=== PATIENT | female | born 1970 | race Caucasian/White ===

== ENCOUNTER → 2018-12-29 | Outpatient (CLI) | payer OTHER ==
[2018-12-29 12:52] LABS: Basophils # (auto) 0 uL; Basophils % (auto) 0.7 % (0.0-2.0); Eosinophils # (auto) 0.1 uL; Eosinophils % (auto) 2.6 % (0.0-7.0); Hematocrit 44.2 % (36.0-46.0); Hemoglobin 15.2 g/dL (12.2-16.2); Lymphocytes # (auto) 1.5 uL; Lymphocytes % (auto) 25.6 % (10.0-50.0); Mean Corpuscular Hemoglobin 30.6 pg (28.0-32.0); Mean Corpuscular Hgb Conc. 34.3 g/dL (32.0-36.0); Monocytes # (auto) 0.6 uL; Monocytes % (auto) 9.7 % (0.0-12.0); Neutrophils # (auto) 3.6 uL; Neutrophils % (auto) 61.4 % (37.0-80.0); Platelet Count (auto) 249 10^3/uL (140-450); Red Blood Cells 4.96 10^6/uL (4.0-5.20); White Blood Cell 5.8 10^3/uL (4.4-10.8)
[2018-12-29 13:50] LABS: Albumin 3.9 g/dL (3.4-5.0); Calcium 9.4 mg/dL (8.5-10.1)
[2018-12-29 13:56] LABS: BUN/Creatinine Ratio 16.3; Bilirubin, Total 0.4 mg/dL (0.2-1.0)
== END | disposition home or self-care (01) ==
LOC: LAB 12:26
PROVIDERS: ATTEND Internal Medicine
DX: Z12.11 Encounter for screening for malignant neoplasm of colon (principal); R07.89 Other chest pain; R10.32 Left lower quadrant pain; R73.01 Impaired fasting glucose
CPT/HCPCS: 36415; 80053; 80061; 82306; 83036; 84439; 84443; 85025

== ENCOUNTER → 2019-01-26 | Outpatient (CLI) | payer OTHER | END | disposition home or self-care (01) | LOC: Rad HDHVI 07:56 | PROVIDERS: ATTEND Internal Medicine | DX: R00.2 Palpitations (principal); R07.9 Chest pain, unspecified; Z86.79 Personal history of other diseases of the circulatory system | CPT/HCPCS: 93306 ==

== ENCOUNTER → 2019-01-30 | Outpatient (CLI) | payer OTHER ==
[~2019-01-30] VITALS: Ht 170.2 cm; Wt 77.1 kg
== END | disposition home or self-care (01) ==
LOC: Rad HDHVI 10:11
PROVIDERS: ATTEND Internal Medicine
DX: R00.2 Palpitations (principal); R07.89 Other chest pain; F43.9 Reaction to severe stress, unspecified; F41.9 Anxiety disorder, unspecified; F32.9 Major depressive disorder, single episode, unspecified; I25.10 Atherosclerotic heart disease of native coronary artery without angina pectoris; Z86.79 Personal history of other diseases of the circulatory system; Z88.0 Allergy status to penicillin
CPT/HCPCS: 78452; 93017; 96374; A9500

== ENCOUNTER 2024-01-03 10:47 | Emergency (ER) | payer BC ==
[~2024-01-03] VITALS: Ht 170.2 cm; Wt 90.0 kg
[2024-01-03] MEDS: FAMOTIDINE 20 MG TAB PO ONE (12:16)
[2024-01-03] MEDS: KETOROLAC TROMETH 60MG/2ML VIAL IM ONE (12:16)
[2024-01-03] MEDS: ONDANSETRON ODT 4 MG TAB PO ONE (12:16)
[2024-01-03 12:17] VITALS: PULSE 88; RESP 14; O2SAT 97
[2024-01-03 12:21] LABS: Basophils # (auto) 0.1 10 ^3/uL (0-0.2); Basophils % (auto) 0.6 % (0.0-2.0); Eosinophils # (auto) 0.1 10 ^3/uL (0-0.8); Eosinophils % (auto) 0.8 % (0.0-7.0); Hematocrit 41.1 % (36.0-46.0); Lymphocytes # (auto) 1.2 10 ^3/uL (0.4-5.4); Lymphocytes % (auto) 13.2 % (10.0-50.0); Mean Corpuscular Hemoglobin 29.8 pg (28.0-32.0); Mean Corpuscular Volume 87.4 fL (80.0-100.0); Monocytes # (auto) 0.8 10 ^3/uL (0-1.3); Monocytes % (auto) 8.4 % (0.0-12.0); Neutrophils # (auto) 6.8 10 ^3/uL (1.6-8.6); Platelet Count (auto) 263 10^3/uL (140-450); White Blood Cell 8.9 10^3/uL (4.4-10.8)
[2024-01-03 12:48] LABS: Alanine Aminotransferase 27 U/L (7-40); Albumin 4.8 g/dL (3.2-4.8); Alkaline Phosphatase 156 U/L (46-116); Anion Gap 6 (5-15); Aspartate Aminotransferase 19 U/L (13-40); BUN/Creatinine Ratio 18.1 (10.0-20.0); Bilirubin, Total 0.4 mg/dL (0.2-1.0); Blood Urea Nitrogen 19 mg/dL (9-23); Calcium 10.1 mg/dL (8.7-10.4); Carbon Dioxide 28 mmol/L (20-31); Chloride 107 mmol/L (98-107); Glucose 114 mg/dL (74-106); Potassium 4.2 mmol/L (3.5-5.1); Sodium 141 mmol/L (136-145); Total Protein 7.3 g/dL (5.7-8.2)
[2024-01-03 13:57] LABS: Urine Bacteria FEW /hpf (None Seen); Urine Blood Negative /uL (Negative); Urine Clarity Clear (Clear); Urine Protein, UAD Negative (Negative); Urine Specific Gravity 1.005 (1.001-1.035); Urine Urobilinogen Normal (Negative); Urine WBC 3 /hpf (0 - 5)
[2024-01-03 14:00] LABS: Urine Color Light-Yellow (Yellow)
[2024-01-03 16:52] VITALS: BP 126/84; PULSE 77; RESP 18; TEMP 97.9; O2SAT 100
[2024-01-03] MEDS ORDERED: CIPR-173 PO (18:14)
[2024-01-03] MEDS ORDERED: METR-344 PO (18:14)
[2024-01-03] MEDS ORDERED: ZOFR4T PO (18:14)
[2024-01-03] MEDS ORDERED: ACET-1304 PO (18:14)
[2024-01-03] MEDS: levoFLOXacin 500MG 100 ML IV ONE (18:36)
[2024-01-03] MEDS: metroNIDAZOLE 500MG/100ML 100 ML IV ONE (18:36)
== END 2024-01-03 18:39 | disposition home or self-care (01) ==
LOC: ER 10:47
DX: K57.32 Diverticulitis of large intestine without perforation or abscess without bleeding (principal); K21.9 Gastro-esophageal reflux disease without esophagitis; Z79.899 Other long term (current) drug therapy; Z88.0 Allergy status to penicillin
CPT/HCPCS: 36415; 74176; 80053; 81001; 84484; 84702; 85025; J1885; J1956; Q0162

== ENCOUNTER → 2024-01-23 | Outpatient (CLI) | payer BC ==
[~2024-01-23] MED LIST: ACET-1304 PO; CIPR-173 PO; METR-344 PO; ZOFR4T PO
[2024-01-23 06:56] LABS: Basophils # (auto) 0 10 ^3/uL (0-0.2); Basophils % (auto) 0.5 % (0.0-2.0); Eosinophils # (auto) 0.1 10 ^3/uL (0-0.8); Hematocrit 43.6 % (36.0-46.0); Hemoglobin 14.4 g/dL (12.2-16.2); Lymphocytes # (auto) 0.9 10 ^3/uL (0.4-5.4); Lymphocytes % (auto) 18.1 % (10.0-50.0); Mean Corpuscular Hemoglobin 28.8 pg (28.0-32.0); Mean Corpuscular Hgb Conc. 32.9 g/dL (32.0-36.0); Mean Corpuscular Volume 87.6 fL (80.0-100.0); Monocytes # (auto) 0.5 10 ^3/uL (0-1.3); Monocytes % (auto) 10.1 % (0.0-12.0); Neutrophils # (auto) 3.5 10 ^3/uL (1.6-8.6); Neutrophils % (auto) 69.3 % (37.0-80.0); Platelet Count (auto) 235 10^3/uL (140-450); Red Blood Cells 4.98 10^6/uL (4.0-5.20); Red Cell Distribution Width 14.2 % (11.8-14.3); White Blood Cell 5.1 10^3/uL (4.4-10.8)
[2024-01-23 07:25] LABS: Cholesterol 212 mg/dL (< 200)
[2024-01-23 07:26] LABS: LDL Cholesterol 142 mg/dL (< 100)
[2024-01-23 07:27] LABS: Triglycerides 80 mg/dL (< 150)
[2024-01-23 07:29] LABS: HDL Cholesterol 56 mg/dL (40-59)
[2024-01-23 17:14] LABS: Urine Bacteria FEW /hpf (None Seen); Urine Blood Negative /uL (Negative); Urine Clarity Turbid (Clear); Urine Color Light-Yellow (Yellow); Urine Mucus FEW (None Seen); Urine Protein, UAD Negative (Negative); Urine Specific Gravity 1.011 (1.001-1.035); Urine Urobilinogen Normal (Negative); Urine WBC 115 /hpf (0 - 5)
== END | disposition home or self-care (01) ==
LOC: LAB 06:24
DX: Z00.00 Encounter for general adult medical examination without abnormal findings (principal); R73.03 Prediabetes; E55.9 Vitamin D deficiency, unspecified; R00.0 Tachycardia, unspecified
CPT/HCPCS: 36415; 80061; 81001; 82306; 83036; 84443; 85025

== ENCOUNTER → 2024-02-07 | Outpatient (CLI) | payer BC ==
[2024-02-07 16:26] LABS: CRP High Sensitivity 1.51 mg/dL (<1.0)
[2024-02-07 16:39] LABS: Erythrocyte Sedimentation Rate 22 mm/hr (0-20)
[2024-02-10 10:56] LABS: Hepatitis B Core Total AB Negative (Negative)
[2024-02-10 11:53] LABS: Hepatitis A Total Antibody Negative (Negative); Hepatitis B Surface Antibody Negative (Negative); Hepatitis B Surface Antigen Negative (Negative); Hepatitis C Antibody Negative (Negative)
== END | disposition home or self-care (01) ==
LOC: LAB 15:17
PROVIDERS: ATTEND Student in an Organized Health Care Education/Training Program
DX: Z12.11 Encounter for screening for malignant neoplasm of colon (principal)
CPT/HCPCS: 36415; 82150; 82274; 83615; 83690; 85652; 86141; 86703; 86704; 86706; 86708; 86803; 87340

== ENCOUNTER → 2024-02-24 | Outpatient (CLI) | payer BC ==
[2024-02-24 16:33] LABS: Calcium 10.4 mg/dL (8.7-10.4); Carbon Dioxide 28 mmol/L (20-31); Chloride 104 mmol/L (98-107)
[2024-02-24 16:34] LABS: Albumin 4.7 g/dL (3.2-4.8); Anion Gap 8 (5-15); Aspartate Aminotransferase 27 U/L (13-40); BUN/Creatinine Ratio 15.7 (10.0-20.0); Bilirubin, Total 0.3 mg/dL (0.2-1.0); Blood Urea Nitrogen 16 mg/dL (9-23); Glucose 88 mg/dL (74-106); Potassium 4.1 mmol/L (3.5-5.1); Sodium 140 mmol/L (136-145); Total Protein 7.2 g/dL (5.7-8.2)
[2024-02-24 16:36] LABS: Alanine Aminotransferase 46 U/L (7-40); Alkaline Phosphatase 151 U/L (46-116)
== END | disposition home or self-care (01) ==
LOC: LAB 15:27
DX: R63.4 Abnormal weight loss (principal)
CPT/HCPCS: 36415; 80053

== ENCOUNTER 2024-04-04 09:27 | Day surgery (SDC) | payer BC ==
[2024-03-27 16:01] LABS: Basophils # (auto) 0.1 10 ^3/uL (0-0.2); Basophils % (auto) 0.9 % (0.0-2.0); Eosinophils # (auto) 0.2 10 ^3/uL (0-0.8); Eosinophils % (auto) 2.1 % (0.0-7.0); Hematocrit 41.9 % (36.0-46.0); Hemoglobin 14.2 g/dL (12.2-16.2); Lymphocytes # (auto) 1.5 10 ^3/uL (0.4-5.4); Lymphocytes % (auto) 20.3 % (10.0-50.0); Mean Corpuscular Hemoglobin 29.7 pg (28.0-32.0); Mean Corpuscular Hgb Conc. 33.9 g/dL (32.0-36.0); Mean Corpuscular Volume 87.7 fL (80.0-100.0); Monocytes # (auto) 0.8 10 ^3/uL (0-1.3); Monocytes % (auto) 10.5 % (0.0-12.0); Neutrophils # (auto) 4.9 10 ^3/uL (1.6-8.6); Neutrophils % (auto) 66.2 % (37.0-80.0); Nucleated Red Blood Cells % 0.1 %; Platelet Count (auto) 244 10^3/uL (140-450); Red Blood Cells 4.78 10^6/uL (4.0-5.20); Red Cell Distribution Width 14.1 % (11.8-14.3); White Blood Cell 7.5 10^3/uL (4.4-10.8)
[2024-03-27 16:23] LABS: Alanine Aminotransferase 21 U/L (7-40); Albumin 4.7 g/dL (3.2-4.8); Alkaline Phosphatase 139 U/L (46-116); Anion Gap 6 (5-15); Aspartate Aminotransferase 15 U/L (13-40); BUN/Creatinine Ratio 16.4 (10.0-20.0); Bilirubin, Total 0.3 mg/dL (0.2-1.0); Blood Urea Nitrogen 18 mg/dL (9-23); Calcium 10.3 mg/dL (8.7-10.4); Carbon Dioxide 27 mmol/L (20-31); Chloride 107 mmol/L (98-107); Glucose 89 mg/dL (74-106); Potassium 4.3 mmol/L (3.5-5.1); Sodium 140 mmol/L (136-145); Total Protein 7.4 g/dL (5.7-8.2)
[2024-03-27 16:27] LABS: INR 0.97 (0.9-1.15); Prothrombin Time 10.3 sec (9.3-11.8)
[~2024-04-04] VITALS: Ht 170.2 cm; Wt 84.4 kg
[~2024-04-04 09:27] MED LIST changes: -CIPR-173 PO; +MAGN400T40 OR; -METR-344 PO; +PANT40TA2 PO; -ZOFR4T PO
[2024-04-04] MEDS ORDERED: SODIUM CHLORIDE LOCK 10 ML ONE (09:49)
[2024-04-04 12:37] VITALS: O2SAT 97
[2024-04-04] MEDS: MIDAZOLAM HCL 5 MG/ML-1ML VIAL ONE (12:42)
[2024-04-04] MEDS: fentaNYL CITRATE 100 MCG/2 ML VL ONE (12:42)
[2024-04-04] MEDS: MIDAZOLAM HCL 2MG/2ML 2ml VIAL (1mg/ml) ONE (12:50)
[2024-04-04 13:10] VITALS: PULSE 72; RESP 13; O2SAT 100
[2024-04-04 13:50] VITALS: BP 116/77; PULSE 70; RESP 12; O2SAT 98
--- NOTE | 2024-04-05 12:37 | DVHNC2 ---
Procedure - DATE OF PROCEDURE: APRIL 04, 2024 SURGEON: Helena Lynn MD REFERRING PROVIDER: MEE SEGURA MD PROCEDURE PERFORMED: 1. COLONOSCOPY WITH BIOPSY WITH MODERATE SEDATION PRE-PROCEDURE DIAGNOSIS: 1. Colon cancer screening, average risk 2. Diarrhea POSTPROCEDURE DIAGNOSIS: 1. Normal terminal ileum, biopsies taken 2. Small descending colon polyp 3. Mild left-sided diverticulosis 4. Internal hemorrhoids INDICATIONS FOR PROCEDURE: The patient is a 53-year-old female who presents for outpatient colonoscopy for screening as well as for chronic diarrhea. SEDATION GIVEN: 7 mg IV Versed and 100 mcg IV fentanyl were given. DETAILS OF THE PROCEDURE: Informed consent was obtained after risks, benefits, and alternatives, were discussed at length with the patient. Consent was given for the procedures as well as for the sedation. Patient was placed in the left lateral decubitus position. Digital rectal exam showed small internal hemorrhoids. An Olympus variable torsion adult colonoscope was inserted into the rectum and advanced to the cecum. The cecum was identified by the ileocecal valve in the appendiceal orifice. The terminal ileum was intubated. It was normal in appearance. Biopsies were taken given the patient's diarrhea. The scope was then withdrawn. The prep was good with only small amounts of stool. The patient had one 3 mm colon polyp in the descending colon removed with biopsy forceps. The patient had mild left-sided diverticulosis. Retroflexion showed internal hemorrhoids. Random biopsies were taken to rule out microscopic colitis. More than 6 minutes withdrawal time was noted. Patient tolerated the procedure well. IMPRESSION: 1. Three colon polyps measuring between three and 4 mm removed with biopsy forceps 2. 1+ internal hemorrhoids RECOMMENDATIONS: 1. Follow up with biopsies and procedure results of the colonoscopy in GI clinic 2. High-fiber diet 3. Repeat colonoscopy in five years unless otherwise indicated 4. Consider medical management of the hemorrhoids 5. Follow up with primary care physician 6. Consider workup for IBS, small intestinal bacterial overgrowth or excluding pancreatic insufficiency I would like to thank Dr. Segura for this referral. HELENA LYNN MD Apr 05, 2024 12:37
== END 2024-04-04 14:00 | disposition home or self-care (01) ==
LOC: GI 09:27
PROVIDERS: ATTEND Specialist
DX: K52.9 Noninfective gastroenteritis and colitis, unspecified (principal); K63.5 Polyp of colon; K57.30 Diverticulosis of large intestine without perforation or abscess without bleeding; K63.89 Other specified diseases of intestine; K64.8 Other hemorrhoids; Z79.899 Other long term (current) drug therapy; Z98.891 History of uterine scar from previous surgery; Z98.890 Other specified postprocedural states; Z88.0 Allergy status to penicillin
CPT/HCPCS: 36415; 45380; 80053; 84702; 85025; 85610; 85730; 88305; J2250; J3010; J7030; 45385; 99152

== ENCOUNTER → 2024-07-10 | Outpatient (CLI) | payer BC ==
[2024-07-10 07:32] LABS: LDL Cholesterol 63 mg/dL (< 100); Triglycerides 118 mg/dL (< 150)
[2024-07-10 07:33] LABS: Cholesterol 141 mg/dL (< 200); HDL Cholesterol 54 mg/dL (40-59)
== END | disposition home or self-care (01) ==
LOC: LAB 06:26
PROVIDERS: ATTEND Internal Medicine
DX: E78.5 Hyperlipidemia, unspecified (principal)
CPT/HCPCS: 36415; 80061

== ENCOUNTER → 2025-01-01 | Outpatient (CLI) | payer BC ==
[2025-01-01 07:37] LABS: Hematocrit 39.1 % (36.0-46.0); Hemoglobin 13.2 g/dL (12.2-16.2); Mean Corpuscular Hemoglobin 29.2 pg (28.0-32.0); Mean Corpuscular Volume 86.7 fL (80.0-100.0); Nucleated Red Blood Cells % 0.0 %
[2025-01-01 08:11] LABS: Thyroid Stimulating Hormone 2.7 uIU/mL (0.55-4.78)
[2025-01-01 08:16] LABS: Alanine Aminotransferase 15 U/L (7-40); Alkaline Phosphatase 112 U/L (46-116); Anion Gap 9 (5-15); BUN/Creatinine Ratio 19.0 (10.0-20.0); Blood Urea Nitrogen 20 mg/dL (9-23); Calcium 9.4 mg/dL (8.7-10.4); Carbon Dioxide 26 mmol/L (20-31); Chloride 106 mmol/L (98-107); Potassium 4.8 mmol/L (3.5-5.1); Sodium 141 mmol/L (136-145); Triglycerides 93 mg/dL (< 150)
[2025-01-01 08:17] LABS: Total Protein 7.2 g/dL (5.7-8.2)
[2025-01-01 08:18] LABS: Albumin 4.5 g/dL (3.2-4.8); Bilirubin, Total 0.4 mg/dL (0.2-1.0); Cholesterol 143 mg/dL (< 200); Glucose 113 mg/dL (74-106); HDL Cholesterol 60 mg/dL (40-59)
[2025-01-01 08:42] LABS: Lipase 37 U/L (12-53)
[2025-01-01 08:43] LABS: Amylase 44 U/L (30-118)
[2025-01-01 15:22] LABS: Urine Budding Yeast FEW /hpf (None Seen); Urine Protein, UAD TRACE (Negative)
== END | disposition home or self-care (01) ==
LOC: LAB 06:32
PROVIDERS: ATTEND Nurse Practitioner Family
DX: K21.9 Gastro-esophageal reflux disease without esophagitis (principal); K76.89 Other specified diseases of liver; R73.03 Prediabetes; R63.4 Abnormal weight loss
CPT/HCPCS: 36415; 80053; 80061; 81001; 82150; 82607; 83036; 83540; 83615; 83690; 84443; 85025